=== PATIENT | female | born 1990 | race American Indian/Alaskan Native ===

== ENCOUNTER 2017-03-31 21:45 | Emergency (ER) | payer SELFPAY ==
[2017-03-31 22:36] VITALS: BP 95/65
[2017-03-31 23:15] LABS: Bilirubin,Urine NEG (Negative); Blood,Urine NEG (Negative); Ketones,Urine NEG (Negative); Leukocyte Esterase,Urine NEG (Negative); Nitrite,Urine NEG (Negative); Protein,Urine <15 mg/dL mg/dL (Negative); Urobilinogen,Urine < 2.0 mg/dL (<2.0); WBC,Urine < 1.0 /HPF (0.0-6.0)
[2017-03-31 23:19] LABS: Basophils % (Auto) 0.2 % (0.0-1.8); Eosinophils % (Auto) 0.7 % (0.0-4.3); Hematocrit 37.1 % (30.3-42.9); Hemoglobin 12.5 gm/dl (10.1-14.3); Mean Corpuscular HGB Conc 34 % (30-34); Mean Corpuscular Hemoglobin 29 pg (28-32); Mean Corpuscular Volume 86 fl (79-97); Platelet Count 256 K/mm3 (140-440); Red Blood Count 4.32 M/mm3 (3.65-5.03); Red Cell Distribution Width 13.8 % (13.2-15.2); White Blood Count 10.3 K/mm3 (4.5-11.0)
[2017-03-31 23:42] LABS: Alanine Aminotransferase 19 units/L (7-56); Anion Gap 15 mmol/L; Blood Urea Nitrogen 7 mg/dL (7-17); Calcium 8.8 mg/dL (8.4-10.2); Carbon Dioxide 27 mmol/L (22-30); Chloride 98.2 mmol/L (98-107); Glucose 81 mg/dL (65-100); Lipase 21 units/L (13-60); Potassium 3.7 mmol/L (3.6-5.0); Sodium 136 mmol/L (137-145); Total Protein 7.9 g/dL (6.3-8.2)
--- NOTE | 2017-03-31 23:50 | Ultrasound Report ---
FINAL REPORT PROCEDURE: US OB \T\lt; = 14 WEEKS FETUS TECHNIQUE: Real-time transabdominal sonography of the uterus, placenta, amniotic fluid, adnexa, and fetus was performed with image documentation. Measurements were obtained to determine age/size. M-mode Doppler was used to document heartbeat. CPT 18191 HISTORY: abdominal cramping COMPARISON: No prior studies are available for comparison. FINDINGS: CRL: 5.2 mm, which corresponds to a gestational age of: 6 weeks, 2 days. Yolk Sac: Normal. Embryonic Cardiac Activity: 123 beats per minute Gestational Sac: Normal. Amniotic fluid: Normal. Cervix: Normal. Right Ovary: Normal. Left Ovary: Normal. Estimated delivery date: 11/22/2017 Uterus and adnexa: Normal. IMPRESSION: Single live intrauterine gestation at approximately 6 weeks and 2 days. EDC by US 11/22/2017
--- NOTE | 2017-03-31 23:51 | Ultrasound Report ---
FINAL REPORT PROCEDURE: US OB TRANSVAGINAL TECHNIQUE: Real-time transvaginal sonography of the uterus, placenta, amniotic fluid, adnexa, and fetus was performed with image documentation. Measurements were obtained to determine age/size. M-mode Doppler was used to document heartbeat. HISTORY: abdominal cramping COMPARISON: No prior studies are available for comparison. FINDINGS: CRL: 5.2 mm, which corresponds to a gestational age of: 6 weeks, 2 days. Yolk Sac: Normal. Embryonic Cardiac Activity: 123 beats per minute Gestational Sac: Normal. Amniotic fluid: Normal. Cervix: Normal. Right Ovary: Normal. Left Ovary: Normal. Estimated delivery date: 11/22/2017 Uterus and adnexa: Normal. IMPRESSION: Single live intrauterine gestation at approximately 6 weeks and 2 days. EDC by US 11/22/2017
[2017-04-01 02:18] LABS: Alkaline Phosphatase 51 units/L (35-129)
== END 2017-03-31 23:58 | disposition left against medical advice (07) ==
LOC: ED 21:45
DX: O21.9 Vomiting of pregnancy, unspecified (principal); R11.0 Nausea; R10.30 Lower abdominal pain, unspecified; Z3A.01 Less than 8 weeks gestation of pregnancy; Z88.8 Allergy status to other drugs, medicaments and biological substances; Z53.21 Procedure and treatment not carried out due to patient leaving prior to being seen by health care provider
CPT/HCPCS: 36415; 76801; 76817; 80053; 81001; 83690; 84702; 85025

== ENCOUNTER 2017-05-20 10:27 | Emergency (ER) | payer MEDICAID ==
[2017-05-20 11:37] LABS: Basophils % (Auto) 0.1 % (0.0-1.8); Eosinophils % (Auto) 0.4 % (0.0-4.3); Hemoglobin 11.5 gm/dl (10.1-14.3); Mean Corpuscular HGB Conc 35 % (30-34); Mean Corpuscular Hemoglobin 30 pg (28-32); Mean Corpuscular Volume 85 fl (79-97); Platelet Count 262 K/mm3 (140-440); Red Blood Count 3.88 M/mm3 (3.65-5.03); Red Cell Distribution Width 14.1 % (13.2-15.2); White Blood Count 10.1 K/mm3 (4.5-11.0)
--- NOTE | 2017-05-20 12:13 | Ultrasound Report ---
OB ULTRASOUND GREATER THAN 14 WEEKS FETUS History: Vaginal bleeding during . Technique: Transabdominal ultrasound with Doppler interrogation. Comparison: 03/31/17. Gestation: Single Position: Variable Amniotic Fluid: Within normal limits Placenta: Anterior Placental Grade: 0 Heart Rate: 159 BPM Cervical length: 4.4 cm (Normal > 3 cm) x It is too early for a anatomical survey BPD: 2.7 cm = 14 w 5 d HC: 10.0 cm = 14 w 5 d AC: 8.2 cm = 14 w 4 d FL: 1.2 cm = 13 w 3 d HC/AC Ratio: 1.22 Cephalic Index: 79.6 LMP: 02/13/17 Clinical age = 13 w 5 d EDC: 11/20/17 US Gest. Age = 14 w 3 d EDC: 11/15/17
--- NOTE | 2017-05-20 12:38 | Emergency Department Report ---
ED HPI - General Chief complaint: Vaginal Bleeding Stated complaint: 13 WEEKS PRG/ ABD PAIN Time Seen by Provider: 05/20/17 11:29 Source: patient Mode of arrival: Ambulatory Limitations: No Limitations - History of Present Illness Initial comments: 26-year-old female currently 13 weeks and 5 days by dates presents to the hospital complaining of fleshy colored vaginal discharge intermittently 3 days. Patient primarily notices this discharge when urinating and having a bowel movement. Occasionally episodes occur with bright red blood as well. Patient complains of intermittent mild pelvic pain worse with standing. Patient has received care including ultrasound verifying IUP. She denies fever or dysuria. Patient has a follow-up LINE ANALYST visit scheduled for this week. 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 Dr. Lora - Related Data Allergies Allergy/AdvReac Type Severity Reaction Status Date / Time acetaminophen Allergy Hives Verified 03/31/17 22:27 [From Darvocet-N] propoxyphene napsylate Allergy Hives Verified 03/31/17 22:27 [From Darvocet-N] ED Review of Systems ROS: Stated complaint: 13 WEEKS PRG/ ABD PAIN Other details as noted in HPI Comment: All other systems reviewed and negative Other: Constitutional: No fevers chills Eyes: No eye pain visual changes ENT: No ear pain or throat pain Neck: Denies pain Respiratory: Denies cough wheezing shortness of breath Cardiovascular: Denies chest pain, palpitations, syncope GI: For HPI : Denies dysuria Musculoskeletal: Denies back pain Skin: Denies rash, lesions, erythema Neurologic: Denies headache, numbness, weakness Psychiatric: Denies suicidal ideation, hallucinations ED Past Medical Hx - Past Medical History Previous Medical History?: Yes Additional medical history: Positive test OTC this week - Surgical History Past Surgical History?: No - Social History Smoking Status: Never Smoker Substance Use Type: None ED Physical Exam - General Limitations: No Limitations - Other Other exam information: General: No limitations, patient is alert in no acute distress Head exam: Atraumatic, normocephalic Eyes exam: Normal appearance, pupils equal reactive to light, extraocular movements intact ENT: Moist mucous membrane, normal oropharynx Neck exam: Normal inspection, full range of motion, no meningismus nontender Respiratory exam: Clear to auscultation bilateral, no wheezes, rales, crackles Cardiovascular: Normal rate and rhythm, normal heart sounds Abdomen: Soft, nondistended, and nontender, with normal bowel sounds, no rebound, or guarding : Clumps of dark brown old blood in the vagina. Cervical os closed. No uterine or cervical motion tenderness. Extremity: Full range of motion normal inspection no deformity Back: Normal Inspection, full range of motion, no tenderness Neurologic: Alert, oriented x3, cranial nerves intact, no motor or sensory deficit Psychiatric: normal affect, normal mood Skin: Warm, dry, intact ED Course Vital Signs 05/20/17 10:58 Temperature 98.5 F Pulse Rate 91 H Respiratory 16 Rate Blood Pressure 111/73 O2 Sat by Pulse 100 Oximetry - Reevaluation(s) Reevaluation #1: 05/20/17 12:38 Patient remained stable - Consultations Consultation #1: 05/20/17 13:[address] Vazquez LINE ANALYST. Agrees with outpatient follow-up ED Medical Decision Making - Lab Data Result diagrams: 05/20/17 11:06 Lab Results 05/20/17 05/20/17 05/20/17 Range/Units 11:06 11:06 11:12 WBC 10.1 (4.5-11.0) K/mm3 RBC 3.88 (3.65-5.03) M/mm3 Hgb 11.5 (10.1-14.3) gm/dl Hct 33.0 (30.3-42.9) % MCV 85 (79-97) fl MCH 30 (28-32) pg MCHC 35 H (30-34) % RDW 14.1 (13.2-15.2) % Plt Count 262 (140-440) K/mm3 Lymph % (Auto) 24.0 (13.4-35.0) % [place] % (Auto) 6.7 (0.0-7.3) % Eos % (Auto) 0.4 (0.0-4.3) % Baso % (Auto) 0.1 (0.0-1.8) % Lymph # 2.4 (1.2-5.4) K/mm3 [place] # 0.7 (0.0-0.8) K/mm3 Eos # 0.0 (0.0-0.4) K/mm3 Baso # 0.0 (0.0-0.1) K/mm3 Seg Neutrophils % 68.8 (40.0-70.0) % Seg Neutrophils # 6.9 (1.8-7.7) K/mm3 HCG, Quant [id number] H (0-4) mIU/mL Blood Type B POSITIVE Antibody Screen Negative - Radiology Data Radiology results: report reviewed ( ultrasound: 14 weeks 3 days. heart 158) - Medical Decision Making Plan to discharge patient home. Positive IUP with heart beat. Old blood in the vault with closed cervical os. Patient does not require RhoGAM based on blood type - Differential Diagnosis miscarriage, threatened Critical Care Time: No Critical care attestation.: If time is entered above; I have spent that time in minutes in the direct care of this critically ill patient, excluding procedure time. ED Disposition Clinical Impression: Threatened miscarriage in early Disposition: DC-01 TO HOME OR SELFCARE Is pt being admited?: No Does the pt Need Aspirin: No Condition: Stable Instructions: Threatened Miscarriage (ED) Additional Instructions: Take Tylenol as needed for pain. Avoid sex or insert anything else into the vagina. Follow-up with the HYDROLOGY PROFESSOR doctor as scheduled this week. Return if symptoms worsen as indicated by discharge instructions. Referrals: [facility] [Provider Group] - 3-5 Days Time of Disposition: 13:47
[2017-05-20 14:08] VITALS: BP 120/78
== END 2017-05-20 14:10 | disposition home or self-care (01) ==
LOC: ED 10:27
DX: O20.0 Threatened abortion (principal); Z3A.13 13 weeks gestation of pregnancy
CPT/HCPCS: 36415; 76805; 84702; 85025; 86850; 86900; 86901

== ENCOUNTER 2017-07-17 22:15 | Outpatient (CLI) | payer MEDICAID ==
[2017-07-17] MEDS ORDERED: LACTATED RINGERS 500 ML IV ONE (23:03)
[2017-07-17 23:04] VITALS: BP 104/56
[2017-07-18 00:10] LABS: Bilirubin,Urine NEG (Negative); Blood,Urine NEG (Negative); Ketones,Urine 20 mg/dL (Negative); Leukocyte Esterase,Urine NEG (Negative); Mucus,Urine 3+ /HPF; Nitrite,Urine NEG (Negative)
== END 2017-07-18 00:55 | disposition home or self-care (01) ==
LOC: TRG 22:15
PROVIDERS: ATTEND Obstetrics & Gynecology
DX: O26.892 Other specified pregnancy related conditions, second trimester (principal); R06.02 Shortness of breath; R10.30 Lower abdominal pain, unspecified; M54.9 Dorsalgia, unspecified; Z3A.22 22 weeks gestation of pregnancy
CPT/HCPCS: 81001

== ENCOUNTER 2017-10-09 10:22 | Outpatient (CLI) | payer MEDICAID ==
[2017-10-09] MEDS ORDERED: CELESTONE SOLUSPAN IM ONE (12:05)
== END 2017-10-09 11:24 | disposition home or self-care (01) ==
LOC: TRG 10:22
PROVIDERS: ATTEND Obstetrics & Gynecology
DX: O47.03 False labor before 37 completed weeks of gestation, third trimester (principal); Z3A.34 34 weeks gestation of pregnancy
CPT/HCPCS: 59025; 96372; J0702

== ENCOUNTER 2017-10-10 16:02 | Outpatient (CLI) | payer MEDICAID ==
[2017-10-10] MEDS ORDERED: CELESTONE SOLUSPAN IM ONE (16:45)
== END 2017-10-10 16:45 | disposition home or self-care (01) ==
LOC: TRG 16:02
PROVIDERS: ATTEND Obstetrics & Gynecology
DX: O36.0130 Maternal care for anti-D [Rh] antibodies, third trimester, not applicable or unspecified (principal); O47.03 False labor before 37 completed weeks of gestation, third trimester; Z3A.34 34 weeks gestation of pregnancy
CPT/HCPCS: 96372; J0702